=== PATIENT | male | born 1995 | race Two or more races ===

== ENCOUNTER 2025-01-26 12:11 | Emergency (ER) | payer OTHER, MEDICAID, SELFPAY ==
--- NOTE | 2025-01-26 12:51 | PD.EDANIML ---
ED Animal Bite RME/HPI General Chief Complaint: Animal Bite Stated Complaint: DOG BITE LEFT RING FINGER / RIGHT FORARM Time Seen by Provider: 01/26/25 12:44 Arrival date/time: 01/26/25 12:11 RME / HPI RME / HPI narrative: 29-year-old male patient came in for evaluation regarding dog bite. Patient sustained a dog bite to the left ring finger, sustaining 3 cm longitudinal laceration to the medial aspect of the finger, patient is able to bend and extend the finger without any limitation. Patient also sustained a puncture wound to the right forearm. No active bleeding noted patient told me that his tetanus vaccination is 3 years old. Patient was bitten by a stray dog in the streets however he told me that he is able to identify the dog if he will see the dog bite. Related Data Previous Rx's ?Medication ?Instructions ?Recorded amoxicillin 875 mg-potassium 1 tab PO BID #20 tabs 01/26/25 clavulanate 125 mg tablet ibuprofen 800 mg tablet 800 mg PO Q8H PRN pain #30 tabs 01/26/25 Allergies Allergy/AdvReac Type Severity Reaction Status Date / Time No Known Allergies Allergy Verified 01/26/25 12:15 Review of Systems Review of Systems Narrative Review of Systems: Review of system reviewed and within normal limits except mentioned in HPI ED Exam Narrative Physical exam: VITAL SIGNS: Reviewed. GENERAL APPEARANCE: Alert and interactive, follows commands, no acute distress, HEAD AND FACE: Non-traumatic. ENT: PERRL, pink conjunctivitis, eyelid no trauma, Mucous membrane moist. NECK: Supple, nontender, no nuchal rigidity. CHEST: No tenderness, no crepitus, no paradoxical movement, no retractions. LUNGS: Clear, well ventilated, symmetric, no rales, no wheezing, no ronchi, no stridor, good breath sounds bilaterally. HEART: Regular rate, regular rhythm, no murmur, no gallops. ABDOMEN: Soft, positive bowel sounds, nondistended, no guarding, nontender, no rebound, no masses, RECTAL: Deferred. GENITAL: Deferred. NEUROLOGICAL: Gross motor function intact sensory function intact, Appropriate for age. MUSCULOSKELETAL: low back nontender, full range of motion. EXTREMITIES: +3 cm laceration, left ring finger, medial aspect, full range of motion., Puncture wound to the right forearm SKIN: Color pink, dry, no rash,no abrasions, no contusions. LYMPHATICS: Deferred. Course Quality Measures none Orders Category Date Time Status Amoxicillin/Pot Clav 875 [Augmentin 875] Med 01/26/25 12:50 Discontinued 1 tab PO X1 ONE Ketorolac Inj [Toradol Inj] Med 01/26/25 13:56 Once 30 mg IM X1 ONE Lidocaine 1% 20 ml [Xylocaine 1% 20 ML] Med 01/26/25 12:50 Discontinued 20 ml INFL X1 ONE PROCEDURES: Laceration Laceration 1: Site: other (Left ring finger) Size (cm): 3 Description: linear Depth: simple, single layer Local Anesthetic: lidocaine 1% Amount of anesthesia used (mL): 5 Pre-repair: wound explored, irrigated extensively and deep structures intact Skin layer closed with: nylon Suture size (cm): 5-0 Number of sutures: 5 Technique: simple, interrupted Animal Bite MDM Narrative MDM Narrative:: 29-year-old male patient came in for evaluation regarding dog bite. Patient sustained a dog bite to the left ring finger, sustaining 3 cm longitudinal laceration to the medial aspect of the finger, patient is able to bend and extend the finger without any limitation. Patient also sustained a puncture wound to the right forearm. No active bleeding noted patient told me that his tetanus vaccination is 3 years old. Patient was bitten by a stray dog in the streets however he told me that he is able to identify the dog if he will see the dog bite. Left ring finger was removed using a ring cutter I spent more than 30 minutes just to remove the ring. I finally remove it without any further injury to the finger. Repair and suturing was done manage see procedure notes Patient received Toradol Augmentin and was advised to closely follow-up. Low enforcement to quarantine the dog, if they are unable to quarantine the dog in 1 week timeframe patient is to come back to the emergency room for rabies shots. I even offered rabies shot right now however patient refused Patient tolerated the procedure well. Patient data External records reviewed:: None Clinical information provided by:: patient Social determinants that could affect healthcare access:: none Patient has the following chronic illnesses:: None How is presenting disease/condition affected by chronic disease/condition?: no chronic disease Evaluation data The following diagnostics were reviewed and interpreted by me:: other (specify) Lab and/or radiology exams considered but not ordered:: None Interpretation Summary: None Medications / Prescriptions Medications or Prescriptions considered but not ordered:: None Medication administrations:: Medication Administration History Ketorolac Tromethamine (Ketorolac Inj 60 Mg/2 Ml Vial) 30 mg IM X1 ONE Stop: 01/26/25 13:57 Discontinued Medications Amoxicillin/Clavulanate Potassium (Amoxicillin/Pot Clav 875 Tablet) 1 tab PO X1 ONE Stop: 01/26/25 12:51 Lidocaine HCl (Lidocaine Hcl 1% 20 Ml Vial) 20 ml INFL X1 ONE Stop: 01/26/25 12:51 Toradol, Augmentin Consultations Consultation(s) initiated? (list below): No Diagnosis Differential diagnosis animal bite: bite by animal and dog bite Most likely diagnosis given after review of the tests above:: Finger laceration secondary to dog bite, forearm puncture wound secondary to dog bite Admission Indicated Admission indicated?: not indicated Explain why admission is indicated or not indicated:: Stable Admission Request Was there a request for admission?: No Disposition Plan Disposition Plan: Discharge Discharge Attestation Discharge Attestation: The patient and all family members were given an opportunity to ask questions and understood the discharge instructions. Discharge instructions specifically effects, indications for sooner follow up or return to the emergency department, and the expected course of current diagnosis. Patient condition: Stable Discharge Plan Plan Patient Disposition: HOME (Self Care) Discharge Disposition comment: Stable Prescriptions/Referrals Prescriptions/Med Rec: New amoxicillin-pot clavulanate 875-125 mg tablet 1 tab PO BID Qty: 20 0RF ibuprofen 800 mg tablet 800 mg PO Q8H PRN (Reason: pain) Qty: 30 0RF Problem List Clinical Impression: Dog bite Patient/Caregiver Discharge Instructions Discharge Activity: activity as tolerated Education Materials: ED Dog Bite Additional Instructions: Thank you for the opportunity for serving you today. You are stable for discharged . You are advised to: Follow-up with your PCP in 1 to 2 days Return to ED for worsening of symptoms Increase oral fluids Take medication as prescribed Report the stool regarding the bite, and currently that over 2 weeks if unable to locate the dog you can come back to the emergency room for rabies shots Daily dressing with bacitracin For removal of sutures in 7 to 10 days Print Language: Ukrainian Stand Alone Forms: Annabel Award Info., Patient Portal Info Letter FORREST/MARGARITA Supervising Physician FORREST/MARGARITA Supervising Physician: MD Dania
[2025-01-26] MEDS: AMOXICILLIN/POT CLAV 875 TABLET 1 TAB PO (14:00)
[2025-01-26] MEDS: KETOROLAC INJ 60 MG/2 ML VIAL 30 MG IM (14:00)
[2025-01-26] MEDS: LIDOCAINE HCL 1% 20 ML VIAL INFL (14:01)
== END 2025-01-26 15:24 | disposition home or self-care (01) ==
LOC: SERX 14:04
PROVIDERS: Emergency Provider Emergency Medicine
DX: S61.215A Laceration without foreign body of left ring finger without damage to nail, initial encounter (principal); S51.831A Puncture wound without foreign body of right forearm, initial encounter; W54.0XXA Bitten by dog, initial encounter
CPT/HCPCS: 12002; 96372; 99283; J1885; J3490; A9270